=== PATIENT | female | born 1945 | race Caucasian/White ===

== ENCOUNTER → 2024-11-09 15:18 | Outpatient (BNVA) | payer OTHER, MEDICAID, SELFPAY | PROVIDERS: Family Provider Family Medicine; PCP Family Medicine; Visit Provider Podiatrist Foot & Ankle Surgery | DX: S82.851A Displaced trimalleolar fracture of right lower leg, initial encounter for closed fracture (principal); I50.9 Heart failure, unspecified; R55 Syncope and collapse; W19.XXXA Unspecified fall, initial encounter | CPT/HCPCS: 73610; 99204 ==

== ENCOUNTER → 2024-11-13 13:33 | Outpatient (BNVA) | payer OTHER, MEDICAID, SELFPAY | PROVIDERS: Family Provider Family Medicine; PCP Family Medicine; Visit Provider Internal Medicine | DX: Z01.818 Encounter for other preprocedural examination (principal); R55 Syncope and collapse; R06.09 Other forms of dyspnea; R06.02 Shortness of breath; R07.9 Chest pain, unspecified; R00.2 Palpitations | CPT/HCPCS: 93005; 99204 ==

== ENCOUNTER 2024-11-16 09:17 | Day surgery (SDC) | payer OTHER, MEDICAID, SELFPAY ==
[2024-11-16] VITALS (12 sets, daily range): BP systolic 148–194; BP diastolic 76–101; PULSE 63–73; RESP 16–18; TEMP 36.4–36.6; O2SAT 94–98; BMI 18.7
--- NOTE | 2024-11-16 | XR_ITS ---
WS: [id number] Exam: XR ankle RT 2V [id number] Date/Time of Exam: 11/16/2024 12:00 AM Reason For Exam: MAMI IMAGES C arm images of the RIGHT ankle were obtained for intraoperative purposes.
--- NOTE | 2024-11-16 10:13 | ANES.PREANE2 ---
Pre-Anesthetic Assessment Height/Weight: Height 5 ft 6 in Weight 116 lb Preop Diagnosis: Right trimalleolar ankle fracture Operation Date: 11/16/24 11:45 Proposed Procedures p ORIF Ankle ORIF Trimalleolar Fracture(Right) - VARUN IrvinM Was Beta Augustin taken within 24 hours: Yes Was Clonidine taken within 24 hours: N/A Last intake: Intake Last Liquid Date 11/15/24 Last Liquid Time 16:00 Last Solid Date 11/15/24 Last Solid Time 17:00 Anesthetic Plan ASA status: 4 Anesthesia: Regional (specify below) Other: Patient presents with a trimalleolar fracture of the right ankle Patient has had multiple episodes of passing out recently which resulted in her following Patient has seen cardiology and they are recommending a cardiac event monitor which is currently in place as well as follow-up echo. Patient also has a history of seizures, most recent seizure was 2 months ago. Does not take any AEDs - Spoke with surgeon and we have made the decision to perform peripheral nerve block to cover pain for procedure and patient will not receive any sedation from us at this time due to cardiac risks Patient is aware and would like to proceed at this time Medications/Allergies Home Medications ?Medication ?Instructions ?Recorded ?Confirmed ?Last Taken ?Type clonazepam 0.5 mg tablet 0.5 mg PO QPM Anxiety 11/09/24 11/15/24 11/14/24 History duloxetine 30 mg capsule,delayed 30 mg PO DAILY 11/09/24 11/15/24 11/15/24 History release losartan 50 mg tablet 50 mg PO DAILY 11/09/24 11/15/24 11/15/24 History metoprolol tartrate 50 mg tablet 50 mg PO DAILY 11/09/24 11/15/24 11/15/24 History olanzapine 5 mg tablet 5 mg PO QPM 11/09/24 11/15/24 11/15/24 History oxycodone 5 mg tablet 5 mg PO DAILY 11/09/24 11/15/24 11/15/24 History potassium chloride 10 mEq 10 meq PO BID 11/09/24 11/15/24 11/15/24 History tablet,extended release(part/cryst) Allergies Allergy/AdvReac Type Severity Reaction Status Date / Time Penicillins Allergy Unknown Unknown Verified 11/13/24 13:46 [facility] Anesthesia Social History Smoking and tobacco/nicotine status: never used tobacco/nicotine
--- NOTE | 2024-11-16 10:48 | ANES.PROC ---
Anesthesia Procedures Procedure/Date: 11/16/24 Nerve Block ^: Nerve Block 1: Main Anesthesia: other Time Out Performed: Yes Consent: requested by attending/covering physician and from patient Nerve block location: popliteal Anesthesia monitors applied: pulse oximetry, EKG, BP cuff and oxygen Nerve block position: supine Anesthetic Used: ropivicaine 0.5% Amount of anesthesia used (mL): 20 Ultrasound used to: recognize landmarks Nerve Stimulator Used?: Yes Interscalene/Femoral BLK: other needle (pjunk 4inch) Injection: neg aspiration of heme Patient Tolerated Procedure: well Complications: none Additional Comments: decadron 4mg added to block Nerve Block 2: Main Anesthesia: other Time Out Performed: Yes Consent: requested by attending/covering physician and from patient Nerve block location: adductor canal Anesthesia monitors applied: pulse oximetry, EKG, BP cuff and oxygen Nerve block position: supine Anesthetic Used: ropivicaine 0.5% Amount of anesthesia used (mL): 10 Ultrasound used to: recognize landmarks Nerve Stimulator Used?: No Interscalene/Femoral BLK: other needle (pjunk 4inch) Injection: neg aspiration of heme Patient Tolerated Procedure: well Complications: none
[2024-11-16] MEDS: acetaminophen 1,000 MG/100 ML PIGGYBACK 400 MG IV (10:54)
--- NOTE | 2024-11-16 10:59 | SUR.PREOP ---
10:35 RIGHT POPLITEAL AND ADUCTOR LEG NERVE BLOCK PERFORMED BY DOCTOR KNOTT, USING 40ml OF 0.5% ROPIVICAINE WITH 4mg OF DECADRON. PT ON OFFICE EMPLOYEE SHOWING NSR. PT TOLERATED PROCEDURE WELL.
--- NOTE | 2024-11-16 11:42 | P.HPUD_ITS ---
Surgery/Procedure H&P Update DATE OF PROCEDURE: November 16, 2024 DATE H&P PERFORMED: 11/09/24 H&P UPDATE INFORMATION: I have reviewed H&P completed within last 30 days, I have examined patient prior to procedure, No changes to prior documentation, H&P is in [facility] EMR on date indicated and Risks and benefits of the procedure reviewed PREOP DIAGNOSIS: Right trimalleolar ankle fracture PLANNED PROCEDURE: Operation Date: 11/16/24 11:45 Proposed Procedures p ORIF Ankle ORIF Trimalleolar Fracture(Right) - Abhi Davison DPM
--- NOTE | 2024-11-16 12:42 | PM.OP ---
Operative Report Date of procedure: November 16, 2024 Surgeon: Abhi Davison DPM Procedure: Date of procedure: 11/16/2024 Pre-op diagnosis: Right trimalleolar ankle fracture Post-op diagnosis: Same Post-op findings: Right trimalleolar ankle fracture Procedure done: Open reduction internal fixation right trimalleolar ankle fracture CPT 82289 Implants: Four 0.062 K wires Specimens removed: None Surgeon: Dr. Abhi Davison DPM Preparation Department Supervisor: Greg Staples Estimated blood loss: 3 cc Tourniquet time: No tourniquet used Complications: None Patient is a 79-year-old female that has a history of right trimalleolar ankle fracture. The extent of the injury and inherent instability of the fracture pattern warrants open reduction internal fixation. Patient has cardiac history and is unable to undergo anesthesia. This is performed under regional block only. A lengthy discussion regarding the procedure, including risks and complications has been had with the patient and is noted in the recent clinic note. Written and verbal consent have been obtained. All patient questions have been answered to the patient?s satisfaction. No written or verbal guarantees have been given or implied. The patient has been NPO since midnight. The history has been reviewed and the history and physical is current. The signed consent was confirmed and placed in the patient chart. Patient imaging has been reviewed and is consistent with the diagnosis. Under mild sedation, the patient was brought into the operating room and placed on the table in the supine position. IV antibiotics were given by the anesthesia team as preoperative surgical prophylaxis. A popliteal/adductor canal block was performed at the anesthesia department. The operative extremity was then prepped and draped in the usual fashion. Next, the following procedures were then performed. Attention was directed to the right ankle where obvious deformity was noted. Under direct fluoroscopic visualization, the right ankle was reduced to appropriate anatomic position. Patient was unable to tolerate reduction. A 10 cc hematoma block was performed using 1% lidocaine plain. After hematoma block, patient tolerated reduction. Upon reducing to the appropriate anatomic position incision was made to the medial malleolus before two 0.062 K wires were driven across the fracture site. Good positioning of the medial malleolus was confirmed on C-arm imaging. Attention was then directed to the lateral aspect of the right ankle. Stab incision was made to the distal aspect of the lateral malleolus and two 0.062 K wires were driven in the tip of the fibula through the medullary canal across the fracture site. Good position of the wires was noted. Wires were bent and Anna balls applied. Final images were obtained which showed appropriate anatomic position. Pins were dressed with Xeroform, dry 4 x 4 gauze, Kerlix roll. Cast was applied to right lower extremity in standard fashion using 2 rolls of plaster and 2 rolls of fiberglass. The patient tolerated the procedure and anesthesia well and without complication. The patient was transported from the operating room to the recovery room with vital signs stable and vascular status intact to all digits of the right foot. The patient was given both written and verbal instructions to remain nonweightbearing to the operative extremity, to keep dressings/splint clean, dry and intact and to take pain medication as directed. The patient will follow-up in the outpatient setting at their scheduled appointment. The patient was discharged with my personal number and was instructed to call if any questions or issues should arise. They were discharged home once anesthesia criteria was met.
== END 2024-11-16 13:40 | disposition home or self-care (01) ==
PROVIDERS: PCP Family Medicine; Visit Provider Podiatrist Foot & Ankle Surgery
PROC: (CPT 27822; principal; 2024-11-16 11:45)
DX: S82.851A Displaced trimalleolar fracture of right lower leg, initial encounter for closed fracture (principal); Z86.69 Personal history of other diseases of the nervous system and sense organs; W19.XXXA Unspecified fall, initial encounter; I50.9 Heart failure, unspecified; R55 Syncope and collapse
CPT/HCPCS: 27822; 73600; 76000; C1713; J0131; J3490; J7030; J9999

== ENCOUNTER → 2024-11-27 14:27 | Outpatient (BNVA) | payer OTHER, MEDICAID, SELFPAY | PROVIDERS: PCP Family Medicine; Visit Provider Podiatrist Foot & Ankle Surgery | DX: S82.851A Displaced trimalleolar fracture of right lower leg, initial encounter for closed fracture (principal); X58.XXXA Exposure to other specified factors, initial encounter; I50.9 Heart failure, unspecified; R55 Syncope and collapse | CPT/HCPCS: 29405; 73610; 99024 ==

== ENCOUNTER → 2024-12-11 13:51 | Outpatient (BNVA) | payer OTHER, MEDICAID, SELFPAY | PROVIDERS: PCP Family Medicine; Visit Provider Podiatrist Foot & Ankle Surgery | DX: S82.851D Displaced trimalleolar fracture of right lower leg, subsequent encounter for closed fracture with routine healing (principal); X58.XXXD Exposure to other specified factors, subsequent encounter; I50.9 Heart failure, unspecified; R55 Syncope and collapse | CPT/HCPCS: 73610; 99214 ==

== ENCOUNTER 2024-12-12 10:42 | Outpatient (CLI) | payer OTHER, MEDICAID, SELFPAY | END 2024-12-12 10:43 | disposition home or self-care (01) | LOC: SPT 10:43 | PROVIDERS: PCP Family Medicine; Visit Provider Podiatrist Foot & Ankle Surgery | DX: Z46.89 Encounter for fitting and adjustment of other specified devices (principal); S82.851D Displaced trimalleolar fracture of right lower leg, subsequent encounter for closed fracture with routine healing; X58.XXXD Exposure to other specified factors, subsequent encounter | CPT/HCPCS: L4361 ==

== ENCOUNTER 2024-12-21 09:33 | Outpatient (CLI) | payer OTHER, MEDICAID, SELFPAY ==
--- NOTE | 2024-12-21 10:00 | USCV_ITS ---
Sonja Stock Age: 79 Gender: F : 1945 Exam Date: 12/21/2024 09:55 Ordering Phys: Justo Becerra M.D ([email or web address]) Technologist: Exam Location: [facility] Indication: sob cp BP: 130 / 72 HR: 73 Rhythm: Sinus Technical Quality: Adequate MEASUREMENTS (Male / Female) Normal Values 2D ECHO LV Diastolic Diameter PLAX 3.6 cm 4.2 - 5.9 / 3.9 - 5.3 cm IVS Diastolic Thickness 1.2 cm 0.6 - 1.0 / 0.6 - 0.9 cm IVS Systolic Thickness 1.8 cm LVPW Diastolic Thickness 1.3 cm 0.6 - 1.0 / 0.6 - 0.9 cm LVPW Systolic Thickness 1.4 cm LVOT Diameter 2.1 cm LV Ejection Fraction 2D Teich 63.3 % LV Ejection Fraction MOD 4C 59.1 % LV Ejection Fraction MOD 2C 67.2 % LV Ejection Fraction 2C AL 67.7 % LA Diameter 3.6 cm RA Systolic Volume 4C AL 15.4 ml RA Systolic Volume 4C MOD 14.0 ml Aorta at Sinotubular Diameter 2.8 cm M-MODE LA Ao Ratio MM 1.2 AV Cusp Separation MM 1.6 cm DOPPLER AV Peak Velocity 124.0 cm/s AV Area Cont Eq vti 2.4 cm squared AV Area Cont Eq pk 1.8 cm squared MV Peak Velocity 83.0 cm/s MV Area PHT 2.4 cm squared Mitral E to A Ratio 0.6 TV Peak Velocity 193.5 cm/s TR Peak Velocity 272.0 cm/s TR Peak Gradient 29.6 mmHg TV Peak E Velocity 84.0 cm/s PV Peak Velocity 69.0 cm/s FINDINGS Left Ventricle Left ventricle is normal in size. LV systolic function is normal with EF of 60 to 65%. No regional wall motion abnormalities are seen. Grade 1 diastolic dysfunction Right Ventricle Normal in size and function Right Atrium Normal in size Left Atrium Normal in size Mitral Valve Mild mitral annular calcification. Trace mitral regurgitation Aortic Valve Structurally normal aortic valve. No significant stenosis or regurgitation. Tricuspid Valve Mild tricuspid regurgitation. Pulmonary artery systolic pressure is normal. Pulmonic Valve Not well visualized Pericardium Normal Aorta Normal in size IVC Not well visualized CONCLUSIONS LV systolic function is normal with EF of 60-65% Grade 1 diastolic dysfunction Trace mitral regurgitation Mild tricuspid regurgitation No comparison studies are available. Justo Becerra MD (Electronically Signed) Final Date: 27 December 2024 09:35 S
== END 2024-12-21 09:34 | disposition home or self-care (01) ==
PROVIDERS: Family Provider Family Medicine; PCP Family Medicine; Visit Provider Internal Medicine
DX: R07.9 Chest pain, unspecified (principal); I50.30 Unspecified diastolic (congestive) heart failure; I36.1 Nonrheumatic tricuspid (valve) insufficiency; I34.0 Nonrheumatic mitral (valve) insufficiency
CPT/HCPCS: 93306

== ENCOUNTER 2024-12-22 07:52 | Outpatient (CLI) | payer OTHER, MEDICAID, SELFPAY ==
[2024-12-22 08:02] VITALS: BMI 18.6
--- NOTE | 2024-12-22 08:14 | ECG_ITS ---
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 Interpretive Statements Lung unchanged pre/post procedure; Intraprocedure shortess of breath; Symptoms resoled by discharge PROCEDURE: At the baseline, the EKG revealed sinus rhythm with a frequent supraventricular ectopics in the form of bigeminy. Possible old septal AK.. The baseline heart was 79 bpm with a blood pressue of 200/91 mm of Hg Lexiscan was infused over a period of 20 seconds. A total of 0.4 milligrams of Lexiscan was infused. The stress phase was continued for a total of 5 minutes. Heart rate at the end of the stress phase was 108 bpm with a blood pressure 163/105 mm of Hg. The EKG at the peak infusion revealed sinus tachycardia with sublingual ectopic Sestamibi was injected 20 seconds after the Lexiscan infusion. Heart rate at the end of the recovery phase was 107 bpm with a blood pressure of 173/95 mm of Hg. CONCLUSION: 1. No significant EKG changes with the LexiScan infusion 2. No LexiScan induced chest pain or cardiac arrhythmia 3. Normal blood pressure and heart rate response 4. Sestamibi/sestamibi perfusion scan pending; see separate report. Electronically Signed On 12-26-2024 09:40:06 CDT by Jesus Quinones M.D. [email or web address]
--- NOTE | 2024-12-22 08:14 | NMCV_ITS ---
NM boom perf SPECT r/s* [id number] Sonja Stock Age: 79 Gender: F : 1945 Exam Date: 12/22/2024 08:50 Ordering Phys: Justo Becerra M.D ([email or web address]) Technologist: LUCIO Serrano Exam Location: [facility] Indications: cp STRESS TEST Please see separate stress test report in [facility] for full findings IMAGE PROTOCOL Rest/Stress 1 Lexiscan Day Radiopharmaceutical Dose (mCi) Administration Site Administered by Rest: Tc-99m 10.5 IV Opal Juarez BED TEACHER Stress:Tc-99m 32.4 IV Opal Juarez BED TEACHER Rest: 22-Dec-2024 60 Discovery 630 Stress: 22-Dec-2024 30 Discovery 630 0.4mg Lexiscan. Supine position only as patient was unable to lay prone. SPECT RESULTS Technical Quality: Good Raw Data Analysis: Normal Image Corrections: No attenuation or motion correction applied Summed Stress Score: 0 Summed Rest Score: 9 Summed Difference Score: 0 PERFUSION FINDINGS Fairly uniform myocardial tracer uptake. Attenuation artifacts were noted in the inferior wall area with the rest imaging FUNCTIONAL RESULTS (calculated via Gated SPECT) Stress Image LV EF (%): 82 Stress EDV (mL):50 TID: 0.69 Stress ESV (mL):9 FUNCTIONAL FINDINGS: Segmental wall motion analysis revealing no gross wall motion abnormalities IMPRESSIONS 1. Myocardial perfusion imaging revealing fairly uniform myocardial tracer uptake with no significant perfusion abnormalities 2. Normal LV ejection fraction of 82%. 3. LV wall motion analysis revealing no gross wall motion abnormalities. 4. Normal LV volume Low probability for coronary ischemia, based on the above findings No similar previous studies are available for comparison Dr Jesus Quinones MD [facility] (Electronically Signed) Final Date: 22 December 2024 11:53 S
[2024-12-22 09:30] VITALS: BP 173/95; PULSE 107
== END 2024-12-22 07:53 | disposition home or self-care (01) ==
LOC: CDL 07:53
PROVIDERS: PCP Family Medicine; Visit Provider Internal Medicine
DX: R07.9 Chest pain, unspecified (principal); R06.02 Shortness of breath
CPT/HCPCS: 36415; 78452; 93017; 96374; A9500; J2785

== ENCOUNTER 2025-01-08 09:40 | Day surgery (SDC) | payer OTHER, MEDICAID, SELFPAY ==
[2025-01-08 10:10] VITALS: BP 150/80; PULSE 39; RESP 16; TEMP 36.7; O2SAT 98
--- NOTE | 2025-01-08 10:25 | ECG_ITS ---
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 Measurements Intervals [place] Rate: 86 P: 50 HI: 183 QRS: 4 QRSD: 92 T: 49 QT: 342 QTc: 411 Interpretive Statements SINUS RHYTHM WITH FREQUENT SUPRAVENTRICULAR PREMATURE COMPLEXES ABNORMAL RHYTHM ECG Compared to ECG 11/13/2024 13:43:42 No significant changes Electronically Signed On 01-09-2025 18:34:16 CDT by Jesus Quinones M.D. [email or web address]
[2025-01-08 10:30] VITALS: BP 200/100; PULSE 88; RESP 18; O2SAT 100
[2025-01-08 11:05] VITALS: BP 165/60; PULSE 84; RESP 18; O2SAT 100
--- NOTE | 2025-01-08 11:34 | PC.NURSE ---
procedure cancelled by anesthesia and surgeon. Pt blood pressure and heart rate erratic as per patients normal. EKG obtained and given to LINNETTE. Dr Davison and Dr Adam both spoke with the patient and advised her that they didnt feel it was safe to proceed with the procedure, and that further consultation with cardiology. Patient agreed with the decision. Patient was placed back in her wheelchair and delivered to her driver trainer , Rip.
--- NOTE | 2025-01-08 12:13 | PC.NURSE ---
Patient procedure cancelled per Dr Davison and Dr Adam. Both felt that further cardiac clearance is necessary, Pt had low heart rate upon arrival. 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
== END 2025-01-08 11:28 | disposition home or self-care (01) ==
PROVIDERS: PCP Internal Medicine; Visit Provider Podiatrist Foot & Ankle Surgery
PROC: (CPT 27870; principal; 2025-01-08 11:30)
PROC: (CPT 28725; 2025-01-08 11:30)
DX: Z53.8 Procedure and treatment not carried out for other reasons (principal)
CPT/HCPCS: 93005

== ENCOUNTER → 2025-01-16 10:33 | Outpatient (BNVA) | payer OTHER, MEDICAID, SELFPAY | PROVIDERS: PCP Internal Medicine; Visit Provider Podiatrist Foot & Ankle Surgery | DX: S82.851A Displaced trimalleolar fracture of right lower leg, initial encounter for closed fracture (principal); X58.XXXA Exposure to other specified factors, initial encounter; I50.9 Heart failure, unspecified; R55 Syncope and collapse | CPT/HCPCS: 73610; 99214 ==

== ENCOUNTER → 2025-02-12 12:26 | Outpatient (BNVA) | payer OTHER, MEDICAID, SELFPAY | PROVIDERS: PCP Internal Medicine; Visit Provider Internal Medicine | DX: Z01.818 Encounter for other preprocedural examination (principal); I49.8 Other specified cardiac arrhythmias; I49.1 Atrial premature depolarization | CPT/HCPCS: 99213 ==